=== PATIENT | male | born 1950 | race Caucasian/White ===

== ENCOUNTER 2020-09-15 17:06 | Inpatient (IN) | payer OTHER ==
[~2020-09-15] VITALS: Ht 162.6 cm; Wt 60.5 kg
[2020-09-15 20:00] VITALS: BP 136/98
--- NOTE | 2020-09-15 23:24 | NUR ---
PATIENT ARRIVED BY STRETCHER FROM OUR ED AFTER TESTING NEGATIVE TO COVID. HE HAS HAD THE ASHLEY AND ASHLEY COVID VACCINE. HE IS A/0 X 4. HE STATES HE IS COMING TO US FROM BEING IN THE ICU AT [facility] AFTER TAKING 10-15 TIZANIDINE MUSCLE RELAXERS AFTER BEING FRUSTRATED WITH PAIN ISSUES IN HIS BACK AND LEGS. HE HAD BEEN TAKING OXYCODONE FOR YEARS AND STARTED HAVING SIDE EFFECTS WHEN TAKING OF ITCHING AND BLISTERS. HIS DOCTOR STOPPED THIS MED AND MORPHINE AND PATIENT WAS NOT HAVING GOOD PAIN RELIEF. HE HAS TRIED STREET AND MEDICAL MARIJUANA AND IS WAITING TO GET OK'D FOR MEDICAL MARIJUANA. PATIENT WALKS WITH A CANE. HE HAS NOT HAD ANY RECENT FALLS BUT STATES HIS LEFT LEG IS WEAK. A WALKER HAS BEEN ORDERED FOR HIM TO USE INSTEAD OF A CANE HERE AT THE HOSPITAL. BP 136/98 P89 R18 T97.5 02%95 ON RA. PATIENT DENIES SI/HI/AVH. HE HAS CHRONIC PAIN IN LOWER BACK AND RIGHT SCIATICA. PATIENT HAS HISTORY OF CONSTIPATION, GERD,DJD,ALLERGIES, SCOLIOSIS,SPINAL STENOSIS. HE HAS SCARS ON BODY FROM PAST SURGERIES: BILATERAL KNEE REPAIRS, ELBOW SCARS, BILATERAL HERNIA REPAIRS, NECK SURGERY FOR DEGENERATIVE DISC AND STENOSIS. PATIENT STATES HE WAS AT [facility] AROUND 2004 FOR SI. HE HAS LONG HISTORY OF DEPRESSION. PT FEELING OVERWHELMED FROM PAIN ISSUES, DOWNSIZING HIS HOME OF 40 YEARS TO MOVE TO A SMALLER LESS MAINTENANCE HOME, AND FEELING ISOLATED FROM THE COVID. HE LIVES AT HOME WITH HIS . HE IS A VOLUNTARY ADMIT. ORDERS RECEIVED AND IMPLEMENTED. PATIENT HAS BEEN CALM WITH SLIGHT ANXIETY, BUT COOPERATIVE. HE DID CALL AND SPEAK WITH HIS TONIGHT. HE WAS ORIENTED TO HIS ROOM. AND QUESTIONS ANSWERED. HOSPITALIST RUTH CAMPUZANO NP SAW PATIENT ON UNIT. HIS LUNGS ARE CTA BILATERALLY, HEART REGULAR, BOWEL SOUNDS ACTIVE AND PRESENT IN ALL 4 QUADS. LBM 09/14/20. PATIENT HAS HISTORY OF MIGRAINES. IMITREX 100MG PO GIVEN TONIGHT FOR MIGRAINE. PATIENT IS RESTING IN BED. BED IN LOW POSITION AND BED ALARM IS ON. ROUTINE ROUNDS TO ASSESS SAFETY AND STATUS OF PATIENT.
[2020-09-16] MEDS ORDERED: NEURONTIN300 MG PO (02:48)
[2020-09-16] MEDS ORDERED: PROZAC20 M1 PO (02:48)
[2020-09-16] MEDS ORDERED: OMEPRAZOLE40 MG PO (02:50)
[2020-09-16] MEDS ORDERED: LORATIDINE 10 M10 M1 PO (02:50)
[2020-09-16] MEDS ORDERED: IMITREX100 MG PO (02:52)
[2020-09-16] MEDS ORDERED: ZANAFLEX4 M1 PO (02:53)
[2020-09-16 06:38] LABS: CHOLESTEROL 176 mg/dL (<200); HDL CHOLESTEROL 58 mg/dL (>40); LDL CHOLESTEROL 108 mg/dL (<100); TRIGLYCERIDE 54 mg/dL (<150); VLDL 11 mg/dL (<40)
[2020-09-16 06:41] LABS: SERUM ASSESSMENT Clear
[2020-09-16 07:04] LABS: FOLIC ACID 18.2 ng/mL (8.6-58.9)
[2020-09-16 09:40] VITALS: BP 135/105
[2020-09-16 19:13] VITALS: BP 113/67
--- NOTE | 2020-09-16 19:55 | NUR ---
Assumed pt care at 0700. pt was alert and oriented x4. Assessments completed, vss. Pt was calm and co-operative with care. DENIES SI/HI, c/o pain. pain meds administered as ordered. PT MAKES NEEDS KNOW TO STAFF. independent with toileting. Dr Mena saw pt. No sign of acute distress noted upon assessments. AMbulates with a walker. took meds whole, no difficulty noted. Will continue to monitor pt.
[2020-09-17 00:06] LABS: GLYCOHEMOGLOBIN (HGB A1C) 5.5 % (4.8-5.6)
--- NOTE | 2020-09-17 05:01 | NUR ---
09-16-20 CARE TRANSFERRED 0 OBSERVED PT SITTING IN DAY ROOM. LATER PT AAOX4, VSS, RR EVEN AND NONLABORED ON RA. PT DENIES SI/HI AND REPORTS PAIN IN NECK AND BACK AREA, PT FURTHER REPORTED HE HAS HAD MULTI SURGERIES. PT PRESENTED CALM AND COOPERATIVE THROUGHOUT NURSING ASSESSMENT. LATER PT REPORTED HAVING A HEADACHE AND PRN MEDICATION WAS GIVEN, WHEN REASSESSMENT NOTED PT WAS RESTING WITH EYES CLOSED. ZERO S/S OF ACUTE DISTRESS NOTED, PT WILL CONTINUE TO BE MONITOR PER [facility] PROTOCOL.
[2020-09-17 10:15] VITALS: BP 145/87
--- NOTE | 2020-09-17 13:41 | NUR ---
Assumed pt care at 0700. pt was alert and oriented x4. Assessments completed, vss. Pt took meds whole, no difficulty noted. Denies si/hi. Pt ambulates with a narrowing gait. pt c/o of pain. Tylenol was offered to pt. pt refused, he stated tylenol does not relief his head ache. pt refused breakfast and AM group activities. pt requested imitrex, pt stated that is what he get for head aches. Dr loja was notified, Dr Khan. Spivey was also notified of pt concerns. A onetime order of 100mg Imitrex was obtain and administered to pt, Per Dr Mancera order. Reassessment of pt at 1100, pt rated 1 for his pain. pt is calm and co-operative with care. AMBULATE WITH WALKER. At this time no c/o pain. will continue to monitor pt.
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
[2020-09-17 20:45] VITALS: BP 122/89
--- NOTE | 2020-09-18 01:02 | NUR ---
Initial patient assessment done at 09/17/20 at 2044. Upon assessement patient observed standing near Nurse's station with walker. Patient alert/oriented x4. Patient has good eye contact, is smiling and friendly. This Nurse took patient to day room where we sat for assessment. Patient rated his back pain 4/10 and was wearing his lidocaine patch on his back at the time. He denied any migraine pain, states it was relieved with imitrex earlier in the day. Patient denied any anxiety, depression, SI/HI, hallucinations. He has been minimally social with peers and interactive with staff. He states he attended part of a group this afternoon. He was glad he met with the therapist today. He told this Nurse that he is feeling " soooo much better than I did 2 days ago!" Patient does appear better than he did upon admission. This Nurse informed patient that he has prn arthritis pain cream and asked him if he would like to try it after lidocaine patch was removed- he agreed. This Nurse applied pain cream to patient's posterior neck and back prior to him retiring to bed. Patient stated he was already feeling better. He promptly went to sleep after that and has slept since that time. Will continue to monitor and follow plan of care. Q 12 min safety checks per protocol.
--- NOTE | 2020-09-18 03:50 | NUR ---
Patient expressed request for shower. He states he has not bathed since before he was admitted to this unit. He was scheduled for shower on 09/17/20 and states he did not get a shower. Pt informed that his next scheduled shower would be 09/19/20. Staff will be notified that patient is wanting/needing to be showered Monday.
[2020-09-18 09:55] VITALS: BP 132/82
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
--- NOTE | 2020-09-18 16:06 | NUR ---
Alert and orientated X 4. Denies SI/HI. States back in hurting 3/10 with good relief from Tylenol. Lidocaine patch placed per order. Ambulates with steady gait. Later in day stated he had ALBA 3/10 which resolved with Tylenol. Breath sounds clear. Reg HR auscultated. Color pink with brisk capillary refill and palpable peripheral pulses. Active bowel sounds over soft, rounded abdomen. States he had BM 2 days ago.
[2020-09-18 19:59] VITALS: BP 104/73
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
--- NOTE | 2020-09-19 04:46 | NUR ---
09-18-20 CARE TRANSFERRED 1900 OBSERVED PT SITTING IN DAY ROOM. LATER PT AAOX4, VSS, RR EVEN AND NONLABORED ON RA. PT REPORTS PAIN IN LOWER BACK, RATES AT A 5 ON 0-10 SCALE. PT DENIES SI/HI. PT PRESENTED PLESANT, CALM AND COOPERATIVE. ZERO S/S OF ACUTE DISTRESS NOTED, PT WILL CONTINUE TO BE MONITOR PER [facility] PROTOCOL.
[2020-09-19 09:03] VITALS: BP 120/75
--- NOTE | 2020-09-19 10:38 | NUR ---
Alert and orientated X4. States depression is improving. Denies anxiety, hallucinations, SI/HI. Ambulates with steady gait. States he is having back and hip pain 3/10, improved to 1/10 with lidocaine patch and tylenol. Currently participating in groups. Breath sounds clear. Reg HR auscutlated. Color pink with brisk capillary refill and palpable peripheral pulses. Independent with voiding. Active bowel sounds over soft, rounded abdomen. States last BM was on . Does not want laxative.
[2020-09-19 20:28] VITALS: BP 103/68
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
[2020-09-20 10:30] VITALS: BP 123/89
[2020-09-20 12:20] VITALS: BP 123/89
[2020-09-20 19:42] VITALS: BP 93/66
[2020-09-20 19:50] VITALS: BP 93/66
--- NOTE | 2020-09-20 22:15 | NUR ---
ASSUMED CARE AT 1900, PATIENT STATED LEFT LEG PAIN 3/, DESCRIBED "NERVE" PAIN - GIVEN SCHEDULED GABEPENTIN. OTHERWISE DENIES ANY C/O. PATIENT PLEASANT AND COOPERATIVE, DENIES SI, HI, AVH. USING WALKER WITHOUT DIFFICULTY. A&Ox4. WILL CONTINUE TO MONITOR.
[2020-09-21 09:21] VITALS: BP 114/85
[2020-09-21 12:06] VITALS: BP 114/85
--- NOTE | 2020-09-21 12:12 | NUR ---
ASSUMED CARE AT 0700 TODAY. HE IS PLEASANT AND COOPERATIVE. HE IS EATING WELL, TOOK HIS MEDICATIONS WITHOUT PROBLEMS. HE HAS BEEN SPENDING TIME AMBULATING IN THE HALLWAY, GOING TO MORNING GROUP AND RESTING IN HIS BED. NO NEW PROBLEMS NOTED OR VOICED. HE TALKS ABOUT BEING DISCHARGED TODAY TO GO HOME. WILL CONTINUE TO MONITOR.
[2020-09-21] MEDS ORDERED: NEURONTIN 400400 M1 PO (12:34)
[2020-09-21] MEDS ORDERED: REMERON 30 MG T30 M1 PO (12:34)
[2020-09-21] MEDS ORDERED: B-12500 MCG PO (12:35)
[2020-09-21 12:58] VITALS: BP 114/85
--- NOTE | 2020-09-21 13:05 | NUR ---
ADINA D/C Note ADINA contacted [facility] and inquired how pt can get enrolled in services. The loan operations specialist told ADINA that pt has to call once he d/c's and do an intake over the phone; they are still not fully in person as of yet. ADINA asked that pt do so by 09/23/20 @03:00 pm. ADINA created a SW handout for pt with the contact information to [facility]. ADINA explained this to pt and then gave a copy to pt and his nurse to put in pt's take home packet. In tx team it was discussed that Dr. Mena will write an order of Outpatient therapy to address his therapy needs. ADINA will put a copy of pt's SW handout in his hospital file. No other needs for SW team to address at this time.
--- NOTE | 2020-09-22 08:55 | D ---
[facility] [place] [address] DISCHARGE SUMMARY Name: SABA ALMEIDA Room #: 525B-B DIS IN M.R.#: [id number] Admission: 09/15/20 Attend Phys: Zabrina Mena DO Discharge: 09/21/20 Date of : 48 Report #: [id number] THIS REPORT FOR: cc: FAM - No family physician/PCP FAM - No family physician/PCP Zabrina Mena DO ~ DOC #: [id number] ZABRINA Mena DO ATTENDING PSYCHIATRIST: Zabrina Mena DO SENIOR INVESTMENT MANAGER AT TIME OF DISCHARGE: Amado Bills M.D. DISCHARGE DIAGNOSIS: Major depressive disorder, recurrent, severe, improved. MEDICAL COMORBIDITIES: Include chronic pain syndrome. ADDITIONAL MORBIDITIES: Include seasonal allergy, migraines, and chronic neck and back pain. The patient is discharging home. The aftercare was set up with grateful assistance from our social media specialist, Nae, and the patient will need to do an intake at [facility]; the patient needs to do an intake by 09/23/2020 at 3:00 p.m.; that will need to be done by telephone. The patient sees Dr. Molly Gilliam for neurology issues. He is encouraged to see his primary care physician in 1 month. The patient was given suicide Crisis hotline information. DISCHARGE MEDICATIONS: Fluoxetine 20 mg oral daily; loratadine 10 mg oral daily for seasonal allergies; omeprazole 40 mg oral in the morning on an empty stomach; Imitrex 100 mg p.r.n. for migraine headaches as prescribed by Dr. Gilliam I believe; the gabapentin was increased this admission to 400 mg oral 3 times a day, he was given a 30-day prescription for this; mirtazapine 15 mg oral at bedtime for sleep, appetite and depression; and 500 mcg oral daily B12 replacement. The patient did receive 3 days of IM loading and B12. LABORATORY DATA: Significant laboratories this admission include hemoglobin A1c of 5.5. Lipids; triglycerides 54, total cholesterol 176, LDL 108, HDL 58. B12 of 270 which was low and has now been replaced, folate normal at 18.2. TSH normal at 0.725. COVID-19, Sorto serology, was negative on 09/15. DISCHARGE DIET: Regular and Ensure with lunch daily. ACTIVITY LEVEL: As tolerated. SOCIAL HISTORY: No alcohol, no illicit drugs. The patient does use a walker to ambulate. [address] [address] DISCHARGE SUMMARY Name: SABA ALMEIDA Room #: 525B-B [facility] IN .R.#: [id number] Admission: 09/15/20 Attend Phys: Zabrina Mena DO Discharge: 09/21/20 Date of : 48 Report #: [id number] REASON FOR ADMISSION: Back on 09/15, this 69-year-old male was transferred from [facility]. He had an intentional suicide attempt on tizanidine. The patient has had increased depression over the past year due to isolation from coronavirus, and weaning off oxycodone and morphine. He had previously been in pain management for quite some time with Dr. Ayala. He has also dabbled a little in medical marijuana, which the patient was advised not to resume given some mood destabilizing properties seen with it. HOSPITAL COURSE: The patient was admitted to [facility] Unit. I elected to maintain the Prozac since it has been a longstanding medication, and had mirtazapine for augmentation in his appetite and sleep properties, and additionally Neurontin has a dual role for pain management and some mood stabilizing properties, so as earlier indicated that was increased to 400 mg 3 times a day from 300 mg 3 times a day. The patient was open to treatment during the hospitalization, was remorseful for his suicide attempt. Telephonic meeting was had with him and his . It was recommended that firearms be removed and secured from the premises; also check for pill stockpiles or other dangerous items; voiced her understanding. The patient was euthymic on day of discharge, future oriented, and talking to other patients and staff. DISCHARGE PHYSICAL EXAMINATION: VITAL SIGNS: On the day of discharge temperature 36.4, pulse 70, respirations 18, BP 114/85, O2 sat 98%. MUSCULOSKELETAL: Assisted gait, kyphotic station. MENTAL STATUS EXAMINATION: This is a well-developed, male appearing older than stated age. Attention fair. Concentration fair. Speech normal in rate, volume and tone. Thought process linear and goal directed. Thought content, focused on discharge. No SI, no HI, no hopelessness, no helplessness. No auditory or visual type hallucinations. Memory not formally tested. Insight fair. Judgment fair. Fund of knowledge above average. PROGNOSIS: For this patient is fair to guarded; will depend on him following up with psychotherapy and psychiatric medication management as well as maintaining healthy scheduled activities. His has interstitial lung disease and is on oxygen, so this is an increased challenge for them as a couple in their bridges years. ZABRINA Mena, DO CONDE/BRANDO [facility] [address] [place] [address] DISCHARGE SUMMARY Name: SABA ALMEIDA Room #: 525B-B DIS IN M.R.#: [id number] Admission: 09/15/20 Attend Phys: Zabrina Mena DO Discharge: 09/21/20 Date of : 48 Report #: [id number] <ELECTRONICALLY SIGNED> By: Zabrina Mena DO 09/22/20 [id number] Zabrina Mena DO /nt
== END 2020-09-21 14:44 | disposition home or self-care (01) | DRG 885 ==
LOC: SBH
PROVIDERS: Nurse Practitioner; Psychiatry & Neurology Psychiatry; ADMIT Psychiatry & Neurology Psychiatry; ATTEND Psychiatry & Neurology Psychiatry
DX: F32.2 Major depressive disorder, single episode, severe without psychotic features (principal); G89.4 Chronic pain syndrome; M54.9 Dorsalgia, unspecified; F41.9 Anxiety disorder, unspecified; M19.90 Unspecified osteoarthritis, unspecified site; K21.9 Gastro-esophageal reflux disease without esophagitis; M48.00 Spinal stenosis, site unspecified; M41.9 Scoliosis, unspecified; J30.2 Other seasonal allergic rhinitis; G43.909 Migraine, unspecified, not intractable, without status migrainosus; F43.10 Post-traumatic stress disorder, unspecified; Z87.891 Personal history of nicotine dependence; Z88.1 Allergy status to other antibiotic agents; Z88.5 Allergy status to narcotic agent; Z88.0 Allergy status to penicillin; Z88.8 Allergy status to other drugs, medicaments and biological substances; Z88.2 Allergy status to sulfonamides
CPT/HCPCS: 10880

== ENCOUNTER 2020-09-15 18:09 | Emergency (ER) | payer OTHER ==
[~2020-09-15] VITALS: Ht 162.6 cm; Wt 59.0 kg
[2020-09-15 18:51] VITALS: BP 122/92
[2020-09-16] MEDS ORDERED: PROZAC20 M1 PO (02:48)
[2020-09-16] MEDS ORDERED: NEURONTIN300 MG PO (02:48)
[2020-09-16] MEDS ORDERED: OMEPRAZOLE40 MG PO (02:50)
[2020-09-16] MEDS ORDERED: LORATIDINE 10 M10 M1 PO (02:50)
[2020-09-16] MEDS ORDERED: IMITREX100 MG PO (02:52)
[2020-09-16] MEDS ORDERED: ZANAFLEX4 M1 PO (02:53)
== END 2020-09-15 19:15 ==
LOC: ER 18:09
DX: R45.851 Suicidal ideations (principal); Z20.822 Contact with and (suspected) exposure to COVID-19; M79.606 Pain in leg, unspecified; G43.909 Migraine, unspecified, not intractable, without status migrainosus; F41.9 Anxiety disorder, unspecified; K21.9 Gastro-esophageal reflux disease without esophagitis